=== PATIENT | male | born 1970 | race Hispanic/Latino ===

== ENCOUNTER 2019-08-31 13:27 | Inpatient (IN) | payer BC, OTHER ==
[~2019-08-31] VITALS: Ht 188 cm; Wt 196.5 kg
[~2019-08-31 13:27] MED LIST: BUPR300T54 PO; DOXY100C2 PO; INSU3INS3 SQ; LEVO50TA11 PO; LISI1TAB28 PO; LOVA20TA3 PO; METO100T14 PO; SITA1TAB6 PO
[2019-08-31 14:30] LABS: BASOPHILS % (AUTO) 1.2 % (0.0-5.0); EOSINOPHILS % (AUTO) 3.5 % (0.0-8.0); HEMATOCRIT 40.2 % (42-54); MEAN CORPUSCULAR HEMOGLOBIN 32.2 pg (27.0-33.0); MEAN CORPUSCULAR HGB CONC 34.5 g/dL (32.0-36.0); MEAN CORPUSCULAR VOLUME 93.6 fL (79-99); MONOCYTES % (AUTO) 8.2 % (3.0-13.0); NEUTROPHILS % (AUTO) 60.1 % (40.0-77.0); NUCLEATED RED BLOOD CELLS 0.1 % (0.0-0.19); PLATELET COUNT (AUTO) 130 K/uL (130-400); RED CELL DISTRIBUTION WIDTH 13.1 % (11.0-15.5); WHITE BLOOD COUNT (AUTO) 4.9 K/uL (4.8-10.8)
[2019-08-31 14:43] LABS: CREATININE 1.1 mg/dL (0.5-1.5); POTASSIUM 4.2 mmol/L (3.5-5.1)
[2019-08-31 14:48] LABS: ALBUMIN 2.9 g/dL (3.5-5.0); BILIRUBIN,TOTAL 0.4 mg/dL (0.2-1.0); CRP QUANTITATIVE 11.3 mg/L (0.00-9.0); TOTAL PROTEIN, SERUM 7.4 g/dL (6.0-8.3)
[2019-08-31 15:35] LABS: ERYTHROCYTE SEDIMENTATION RATE 22 MM/HR (0-15)
[2019-08-31] MEDS ORDERED: VANCOMYCIN 1GM+NS 250ML 250 ML IV ONE (15:58)
[2019-08-31] MEDS ORDERED: ZOSYN 3.375GM+NS 50ML 50 ML IV ONE (15:58)
[2019-08-31] MEDS ORDERED: INSULIN HUMULIN R 100 UNIT/ML 3ML ONE (15:59)
[2019-08-31] MEDS ORDERED: RENAL DOSE IV SCH (16:00)
[2019-08-31] MEDS ORDERED: SODIUM CHLORIDE 0.9% 1000ML 1,000 ML IV ONE ×2 (16:00→17:44)
[2019-08-31] MEDS ORDERED: PHARMACY COMMUNICATION MISC SCH (16:00)
[2019-08-31] MEDS: SODIUM CHLORIDE 0.9% 1000ML 1,000 ML IV SCH ×2 (16:02→23:27)
[2019-08-31] MEDS ORDERED: GLUCAGON 1MG KIT 1 MG ML IM PRN (16:15)
[2019-08-31] MEDS ORDERED: DEXTROSE 50%-WATER 50 ML DISP.SYRIN IV PRN (16:15)
[2019-08-31] MEDS ORDERED: VANCOMYCIN PROTOCOL PER PHARMACY IV SCH (17:00)
[2019-08-31] MEDS ORDERED: COMPOUND IV REFRIGERATED 1 EACH IVSOLN MISC PRN (17:15)
[2019-08-31] MEDS: INSULIN HUMULIN R 100 UNIT/ML 3ML SQ SCH (21:00)
[2019-08-31] MEDS: FAMOTIDINE 20MG TAB 20 MG TAB PO SCH (21:00)
[2019-08-31] MEDS: ZOSYN 3.375GM+NS 50ML 50 ML IV SCH (21:00)
[2019-08-31] MEDS: VANCOMYCIN 2 GM in SODIUM CHLORIDE 0.9% 500ML 500 ML IV SCH (21:00)
[2019-08-31] MEDS ORDERED: FAMOTIDINE 20MG TAB 20 MG TAB ONE (21:12)
[2019-08-31 21:50] VITALS: BP 148/84
--- NOTE | 2019-08-31 22:00 | NUR ---
ASSESSMENT NOTE PATIENT AWAKE, ALERT, OX3, NO SOB, NO C/O PAIN AT THIS TIME, RIGHT HAND 20G CATHETER PATENT, NO FAMILY AT BEDSIDE, OPEN LEFT POSTERIOR GREAT TOE ULCER OPEN , NO DRAINAGE AT THIS TIME, TEACH PATIENT PLAN OF CARE AND EXPECTED OUTCOME, PATIENT VERBALIZES UNDERSTANDING VIA TEACH BACK
[2019-08-31] MEDS ORDERED: ACETAMINOPHEN EXTRA STRENGTH 500 MG TABLET PO PRN (22:30)
[2019-08-31] MEDS ORDERED: ONDANSETRON HCL 4 MG/2 ML VIAL IVP PRN (22:30)
[2019-08-31] MEDS ORDERED: MORPHINE SULFATE 2 MG/ML 1ML SYG IVP PRN (22:30)
[2019-08-31] MEDS ORDERED: METF-446 PO (22:33)
[2019-08-31] MEDS ORDERED: ATOR40TA71 PO (22:33)
[2019-08-31] MEDS ORDERED: IBUP-2077 PO (22:33)
[2019-08-31] MEDS ORDERED: FLU VACC QS2019-20 36MOS UP/PF 60 MCG/0.5 ML ML IM ONE (23:15)
[2019-09-01 00:10] VITALS: BP 136/77
[2019-09-01 04:11] VITALS: BP 154/88
[2019-09-01 04:40] LABS: EOSINOPHILS % (AUTO) 3.2 % (0.0-8.0); HEMATOCRIT 41.7 % (42-54); LYMPHOCYTES % (AUTO) 32.7 % (21.0-51.0); MEAN CORPUSCULAR HEMOGLOBIN 32.3 pg (27.0-33.0); MEAN CORPUSCULAR HGB CONC 34.7 g/dL (32.0-36.0); MEAN CORPUSCULAR VOLUME 93.1 fL (79-99); MONOCYTES % (AUTO) 7.7 % (3.0-13.0); NEUTROPHILS % (AUTO) 55.4 % (40.0-77.0); PLATELET COUNT (AUTO) 145 K/uL (130-400); RED BLOOD CELL COUNT(AUTO) 4.47 MIL/uL (4.50-6.20); RED CELL DISTRIBUTION WIDTH 13.4 % (11.0-15.5)
[2019-09-01 04:47] LABS: CREATININE 1.1 mg/dL (0.5-1.5); POTASSIUM 4.1 mmol/L (3.5-5.1)
[2019-09-01] MEDS: ZOSYN 3.375GM+NS 50ML 50 ML IV SCH ×3 (05:29→19:37)
[2019-09-01] MEDS: INSULIN HUMULIN R 100 UNIT/ML 3ML SQ SCH ×4 (06:28→20:53)
[2019-09-01 08:00] VITALS: BP 137/86
[2019-09-01] MEDS: ENOXAPARIN SODIUM 30 MG/0.3 ML SQ SCH (09:00)
[2019-09-01] MEDS: FAMOTIDINE 20MG TAB 20 MG TAB PO SCH ×2 (09:34→19:37)
[2019-09-01] MEDS: VANCOMYCIN 2 GM in SODIUM CHLORIDE 0.9% 500ML 500 ML IV SCH ×2 (09:34→19:37)
[2019-09-01 12:00] VITALS: BP 162/96
[2019-09-01] MEDS: SODIUM CHLORIDE 0.9% 1000ML 1,000 ML IV SCH ×2 (12:02→21:47)
--- NOTE | 2019-09-01 12:26 | NUR ---
DR MAURICIO VISITED WITH PATIENT. SCRAPING OF THE SKIN DONE AT BEDSIDE. PATIENT TOLERATED WELL, NO COMPLAIN OF PAIN. BETADINE CAST APPLIED, ORDERED TO BE CHANGED Q24 HRS
--- NOTE | 2019-09-01 14:17 | NUR ---
RD NOTIFICATION Pt admitted for Diabetic Ulcer, L. Foot Osteomyelitis. Pt pending Debridement as per EMR. Upon visit, Pt reports good appetite, however did not consume breakfast d/t "earlier interruptions" and did not desire food afterwards. Pt did not otherwise request additional foods but was looking forward to lunch time. Recommend to continue 75gm CCD, Recommend to offer Diabetic Snacks in between meal times. RD recommends Harinder BID for wound healing support. Also recommend Vitamin C and ZnSO4 daily for wound healing support. Pt LBM 08/31/19. Pt monitored labs: Glu 182, Alk 40, CRP 11.30, Alb 2.9. RD to continue to monitor. Please notify RD as additional nutrition concerns arise. Thank you. Addendum: 09/01/19 at [address] RD Amended: Links added.
--- NOTE | 2019-09-01 14:37 | NUR ---
DCP CM met with pt discussed dc plans. Pt is independent prior to admission, lives at home w/mother. Pt has own crutches and cpap. Denies any other equipment/services. Feels safe to go back home, still drives and works, arranges own needs, family able to assist with transportation as necessary. DC plan to home once stable. CM to cont to follow up. Addendum: 09/01/19 at 1438 by RALPH MACHADO LVN CM Amended: Links added.
[2019-09-01] MEDS ORDERED: IOHEXOL 350 MG/ML 100ML INFUS..BTL IV ONE (15:27)
[2019-09-01 16:00] VITALS: BP 132/81
[2019-09-01 20:10] VITALS: BP 135/75
[2019-09-02 01:14] VITALS: BP 151/86
[2019-09-02] MEDS: ZOSYN 3.375GM+NS 50ML 50 ML IV SCH ×3 (04:16→20:18)
[2019-09-02 04:43] VITALS: BP 146/87
[2019-09-02] MEDS: INSULIN HUMULIN R 100 UNIT/ML 3ML SQ SCH ×4 (05:52→20:23)
[2019-09-02 07:30] VITALS: BP 152/98
[2019-09-02] MEDS: FAMOTIDINE 20MG TAB 20 MG TAB PO SCH ×2 (10:09→20:18)
[2019-09-02] MEDS: VANCOMYCIN 2 GM in SODIUM CHLORIDE 0.9% 500ML 500 ML IV SCH ×2 (10:09→22:06)
[2019-09-02] MEDS: SODIUM CHLORIDE 0.9% 1000ML 1,000 ML IV SCH ×2 (10:10→16:54)
[2019-09-02] MEDS: ENOXAPARIN SODIUM 30 MG/0.3 ML SQ SCH (10:10)
[2019-09-02 11:00] VITALS: BP 164/101
[2019-09-02 16:00] VITALS: BP 160/109
[2019-09-02] MEDS ORDERED: IBUPROFEN 800 MG TAB PO PRN (18:15)
[2019-09-02 20:00] VITALS: BP 145/90
[2019-09-03 00:41] VITALS: BP 152/91
[2019-09-03] MEDS: ZOSYN 3.375GM+NS 50ML 50 ML IV SCH ×3 (03:27→22:12)
[2019-09-03] MEDS: VANCOMYCIN 2 GM in SODIUM CHLORIDE 0.9% 500ML 500 ML IV SCH ×2 (03:28→10:49)
[2019-09-03] MEDS: SODIUM CHLORIDE 0.9% 1000ML 1,000 ML IV SCH ×2 (03:28→14:02)
[2019-09-03 04:00] VITALS: BP 146/70
[2019-09-03] MEDS ORDERED: LEVOTHYROXINE 50 MCG TABLET ONE (05:16)
[2019-09-03] MEDS: LEVOTHYROXINE 50 MCG TABLET PO SCH (05:34)
[2019-09-03] MEDS: INSULIN HUMULIN R 100 UNIT/ML 3ML SQ SCH ×4 (05:38→22:17)
[2019-09-03 08:00] VITALS: BP 129/77
[2019-09-03] MEDS: HOME MEDICATION 1 EACH PO SCH (09:00)
[2019-09-03] MEDS: INSULIN GLARGINE 100 UNITS/ML 10 ML VIAL SQ SCH (09:00)
[2019-09-03] MEDS ORDERED: INSULIN GLARGINE 100 UNITS/ML 10 ML VIAL SQ SCH (09:00)
[2019-09-03] MEDS: FAMOTIDINE 20MG TAB 20 MG TAB PO SCH ×2 (09:31→22:12)
[2019-09-03] MEDS: METFORMIN HCL 500 MG TABLET PO SCH (09:31)
[2019-09-03] MEDS: BUPROPION HCL 150 MG TABLET.SA PO SCH (09:31)
[2019-09-03] MEDS: LISINOPRIL 20 MG TABLET PO SCH (09:32)
[2019-09-03] MEDS: HYDROCHLOROTHIAZIDE 25 MG TABLET PO SCH (09:33)
[2019-09-03] MEDS: ATORVASTATIN CALCIUM 40 MG TABLET PO SCH (09:33)
[2019-09-03] MEDS: ENOXAPARIN SODIUM 30 MG/0.3 ML SQ SCH (09:34)
[2019-09-03] MEDS: METOPROLOL TARTRATE 50 MG TAB PO SCH (09:34)
[2019-09-03 12:00] VITALS: BP 136/84
[2019-09-03 16:00] VITALS: BP 151/82
[2019-09-03 20:00] VITALS: BP 153/87
[2019-09-03] MEDS: VANCOMYCIN 1GM+NS 250ML 250 ML IV SCH (22:13)
[2019-09-04] VITALS (7 sets, daily range): BP systolic 135–162; BP diastolic 81–103
[2019-09-04] MEDS: SODIUM CHLORIDE 0.9% 1000ML 1,000 ML IV SCH (00:02)
[2019-09-04] MEDS: VANCOMYCIN 1GM+NS 250ML 250 ML IV SCH ×3 (04:57→20:37)
[2019-09-04] MEDS: LEVOTHYROXINE 50 MCG TABLET PO SCH (06:13)
[2019-09-04] MEDS: ZOSYN 3.375GM+NS 50ML 50 ML IV SCH ×3 (06:13→20:37)
[2019-09-04] MEDS: INSULIN HUMULIN R 100 UNIT/ML 3ML SQ SCH ×4 (06:18→20:35)
[2019-09-04] MEDS: BUPROPION HCL 150 MG TABLET.SA PO SCH (08:50)
[2019-09-04] MEDS: ATORVASTATIN CALCIUM 40 MG TABLET PO SCH (08:50)
[2019-09-04] MEDS: METFORMIN HCL 500 MG TABLET PO SCH (08:50)
[2019-09-04] MEDS: INSULIN GLARGINE 100 UNITS/ML 10 ML VIAL SQ SCH (08:50)
[2019-09-04] MEDS: FAMOTIDINE 20MG TAB 20 MG TAB PO SCH ×2 (08:51→20:36)
[2019-09-04] MEDS: METOPROLOL TARTRATE 50 MG TAB PO SCH (08:51)
[2019-09-04] MEDS: HYDROCHLOROTHIAZIDE 25 MG TABLET PO SCH (08:52)
[2019-09-04] MEDS: HOME MEDICATION 1 EACH PO SCH (08:52)
[2019-09-04] MEDS: LISINOPRIL 20 MG TABLET PO SCH (08:53)
[2019-09-04] MEDS: ENOXAPARIN SODIUM 30 MG/0.3 ML SQ SCH (08:53)
[2019-09-04 10:24] LABS: BASOPHILS % (AUTO) 1.1 % (0.0-5.0); EOSINOPHILS % (AUTO) 3.5 % (0.0-8.0); LYMPHOCYTES % (AUTO) 34.5 % (21.0-51.0); MEAN CORPUSCULAR HEMOGLOBIN 32.1 pg (27.0-33.0); MEAN CORPUSCULAR HGB CONC 34.1 g/dL (32.0-36.0); MEAN CORPUSCULAR VOLUME 94.1 fL (79-99); MONOCYTES % (AUTO) 8.5 % (3.0-13.0); NEUTROPHILS % (AUTO) 52.4 % (40.0-77.0); PLATELET COUNT (AUTO) 133 K/uL (130-400); RED BLOOD CELL COUNT(AUTO) 4.25 MIL/uL (4.50-6.20); RED CELL DISTRIBUTION WIDTH 13.3 % (11.0-15.5); WHITE BLOOD COUNT (AUTO) 4.6 K/uL (4.8-10.8)
[2019-09-04 10:33] LABS: CREATININE 1.4 mg/dL (0.5-1.5); POTASSIUM 3.6 mmol/L (3.5-5.1)
[2019-09-04 10:37] LABS: CRP QUANTITATIVE 18.2 mg/L (0.00-9.0); MAGNESIUM 1.7 mg/dL (1.80-2.40); PHOSPHORUS 3.9 mg/dL (2.5-4.9)
[2019-09-04 11:07] LABS: HEMOGLOBIN A1C 10.8 % (4.0-6.0)
[2019-09-04 12:49] LABS: ERYTHROCYTE SEDIMENTATION RATE 31 MM/HR (0-15)
[2019-09-05 03:00] VITALS: BP 142/86
[2019-09-05 05:18] LABS: BASOPHILS % (AUTO) 1.1 % (0.0-5.0); EOSINOPHILS % (AUTO) 3.3 % (0.0-8.0); HEMATOCRIT 38.5 % (42-54); LYMPHOCYTES % (AUTO) 29.5 % (21.0-51.0); MEAN CORPUSCULAR HEMOGLOBIN 32.6 pg (27.0-33.0); MEAN CORPUSCULAR HGB CONC 34.8 g/dL (32.0-36.0); MEAN CORPUSCULAR VOLUME 93.5 fL (79-99); MONOCYTES % (AUTO) 10.5 % (3.0-13.0); NEUTROPHILS % (AUTO) 55.6 % (40.0-77.0); NUCLEATED RED BLOOD CELLS 0.1 % (0.0-0.19); PLATELET COUNT (AUTO) 142 K/uL (130-400); RED BLOOD CELL COUNT(AUTO) 4.11 MIL/uL (4.50-6.20); RED CELL DISTRIBUTION WIDTH 13.4 % (11.0-15.5); WHITE BLOOD COUNT (AUTO) 5.7 K/uL (4.8-10.8)
[2019-09-05] MEDS: ZOSYN 3.375GM+NS 50ML 50 ML IV SCH ×3 (05:26→21:32)
[2019-09-05] MEDS: INSULIN HUMULIN R 100 UNIT/ML 3ML SQ SCH ×4 (05:29→21:26)
[2019-09-05] MEDS: LEVOTHYROXINE 50 MCG TABLET PO SCH (05:29)
[2019-09-05 05:30] LABS: CREATININE 1.3 mg/dL (0.5-1.5)
[2019-09-05 08:00] VITALS: BP 163/100
[2019-09-05] MEDS: HOME MEDICATION 1 EACH PO SCH (09:00)
[2019-09-05] MEDS: INSULIN GLARGINE 100 UNITS/ML 10 ML VIAL SQ SCH (09:54)
[2019-09-05] MEDS: BUPROPION HCL 150 MG TABLET.SA PO SCH (09:59)
[2019-09-05] MEDS: METOPROLOL TARTRATE 50 MG TAB PO SCH (09:59)
[2019-09-05] MEDS: FAMOTIDINE 20MG TAB 20 MG TAB PO SCH ×2 (09:59→21:32)
[2019-09-05] MEDS: ATORVASTATIN CALCIUM 40 MG TABLET PO SCH (10:00)
[2019-09-05] MEDS: METFORMIN HCL 500 MG TABLET PO SCH (10:00)
[2019-09-05] MEDS: HYDROCHLOROTHIAZIDE 25 MG TABLET PO SCH (10:00)
[2019-09-05] MEDS: VANCOMYCIN 1GM+NS 250ML 250 ML IV SCH ×3 (10:01→21:32)
[2019-09-05] MEDS: LISINOPRIL 20 MG TABLET PO SCH (10:01)
[2019-09-05] MEDS: ENOXAPARIN SODIUM 30 MG/0.3 ML SQ SCH (10:02)
[2019-09-05 12:00] VITALS: BP 122/76
[2019-09-05 16:00] VITALS: BP 141/66
[2019-09-05 19:49] VITALS: BP 157/91
--- NOTE | 2019-09-05 22:32 | NUR ---
METAL DEALER CALLED TO REPORT HR OF 23 WITH 2ND DEGREE TYPE 2 AV BLOCK. PATIENT CURRENTLY JERSON 55. ASSESSED THE PT. ASYMPTOMATIC AT THIS TIME. PT REQUESTING FOOD, NO OTHER SYMPTOMS. WILL PAGE DIRECTOR [employer] TO REPORT FINDINGS. TELE MONITOR REMAINS ON, BED ALARM ON.
--- NOTE | 2019-09-05 22:42 | NUR ---
PHYSICIAN RETURNED CHINO FOOTE ORDERED AN EKG TO BE DONE AND CONTINUE TO CLOSELY MONITOR THE PATIENT.
--- NOTE | 2019-09-05 23:27 | NUR ---
EKG RESULTS PAGED CHINO IRVIN TO REPORT EKG OF SINUS JERSON WITH FIRST DEGREE AV BLOCK. RIGHT BUNDLE BRANCH BLOCK. BP 140/85. PT ASYMPTOMATIC. PER RORY TO CONTINUE TO MONITOR THE PATIENT THROUGHOUT THE SHIFT. TELE REMAINS ON PT.
[2019-09-06] VITALS: BP 140/85
[2019-09-06 03:22] VITALS: BP 141/79
[2019-09-06] MEDS: ZOSYN 3.375GM+NS 50ML 50 ML IV SCH ×2 (04:58→12:25)
[2019-09-06] MEDS: VANCOMYCIN 1GM+NS 250ML 250 ML IV SCH (04:59)
[2019-09-06] MEDS: INSULIN HUMULIN R 100 UNIT/ML 3ML SQ SCH ×3 (05:31→17:54)
[2019-09-06] MEDS: LEVOTHYROXINE 50 MCG TABLET PO SCH (06:38)
[2019-09-06 07:38] VITALS: BP 140/82
--- NOTE | 2019-09-06 08:28 | NUR ---
Per PHIL Medeiros, discharge order received, pending discharge for Dr. Zaragoza's antibiotic recommendations for home.
[2019-09-06] MEDS: HOME MEDICATION 1 EACH PO SCH (09:00)
[2019-09-06] MEDS: BUPROPION HCL 150 MG TABLET.SA PO SCH (10:42)
[2019-09-06] MEDS: METOPROLOL TARTRATE 50 MG TAB PO SCH (10:42)
[2019-09-06] MEDS: ENOXAPARIN SODIUM 30 MG/0.3 ML SQ SCH (10:43)
[2019-09-06] MEDS: LISINOPRIL 20 MG TABLET PO SCH (10:44)
[2019-09-06] MEDS: HYDROCHLOROTHIAZIDE 25 MG TABLET PO SCH (10:44)
[2019-09-06] MEDS: ATORVASTATIN CALCIUM 40 MG TABLET PO SCH (10:45)
[2019-09-06] MEDS: METFORMIN HCL 500 MG TABLET PO SCH (10:45)
[2019-09-06] MEDS: FAMOTIDINE 20MG TAB 20 MG TAB PO SCH (10:45)
[2019-09-06] MEDS: INSULIN GLARGINE 100 UNITS/ML 10 ML VIAL SQ SCH (10:46)
[2019-09-06 12:00] VITALS: BP 144/89
[2019-09-06 16:00] VITALS: BP 153/93
--- NOTE | 2019-09-06 18:30 | NUR ---
Discharge picture of wound taken. Patient stated asked how to dress wound, gave verbal instructions for dressing wound with betadine cast, 4x4 and kerlix. 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 Explained to patient he needed to call Dr. Hernandez first thing in the morning to get activity recommendations and clearance on when to return to work. Patient verbalized understanding. Provided follow up information.
== END 2019-09-06 19:25 | disposition home or self-care (01) | DRG 622 ==
LOC: EDH 13:27 → EDHIP 15:48 → 3AH 20:46
PROVIDERS: ADMIT Hospitalist; ATTEND Hospitalist
PROC: 0JBR0ZZ Excision of Left Foot Subcutaneous Tissue and Fascia, Open Approach (ICD-10-PCS; principal; 2019-09-01)
DX: E11.621 Type 2 diabetes mellitus with foot ulcer (principal); A41.9 Sepsis, unspecified organism; L02.612 Cutaneous abscess of left foot; Z68.43 Body mass index [BMI] 50.0-59.9, adult; E44.1 Mild protein-calorie malnutrition; L03.116 Cellulitis of left lower limb; N39.0 Urinary tract infection, site not specified; K57.92 Diverticulitis of intestine, part unspecified, without perforation or abscess without bleeding; L97.529 Non-pressure chronic ulcer of other part of left foot with unspecified severity; E11.42 Type 2 diabetes mellitus with diabetic polyneuropathy; E11.65 Type 2 diabetes mellitus with hyperglycemia; E66.01 Morbid (severe) obesity due to excess calories; E78.5 Hyperlipidemia, unspecified; E03.9 Hypothyroidism, unspecified; B96.89 Other specified bacterial agents as the cause of diseases classified elsewhere; I10 Essential (primary) hypertension; Z82.49 Family history of ischemic heart disease and other diseases of the circulatory system; Z82.0 Family history of epilepsy and other diseases of the nervous system; Z82.5 Family history of asthma and other chronic lower respiratory diseases; Z83.3 Family history of diabetes mellitus; Z82.3 Family history of stroke; Z88.2 Allergy status to sulfonamides; G47.33 Obstructive sleep apnea (adult) (pediatric); Z95.0 Presence of cardiac pacemaker; Z80.1 Family history of malignant neoplasm of trachea, bronchus and lung; Z91.19 Patient's noncompliance with other medical treatment and regimen; F41.9 Anxiety disorder, unspecified
CPT/HCPCS: 36415; 73630; 73701; 78315; 80048; 80053; 80202; 82948; 83036; 83735; 84100; 84145; 85025; 85651; 86140; 87040; 87070; 87076; 87077; 87186; 93005; 93926; A9503; G0008; G0378; J1650; J1815; J2543; J3370; J7030; J7040; Q9967

== ENCOUNTER → 2019-09-15 | Outpatient (CLI) | payer BC ==
[~2019-09-15] MED LIST changes: +ATOR40TA71 PO; -DOXY100C2 PO; +IBUP-2077 PO; -LOVA20TA3 PO; +METF-446 PO
[2019-09-15 14:38] VITALS: BP 164/99
== END | disposition home or self-care (01) ==
LOC: WHH 09:00
PROVIDERS: ATTEND Podiatrist Foot & Ankle Surgery
DX: E11.621 Type 2 diabetes mellitus with foot ulcer (principal); L97.522 Non-pressure chronic ulcer of other part of left foot with fat layer exposed; E11.42 Type 2 diabetes mellitus with diabetic polyneuropathy; E11.51 Type 2 diabetes mellitus with diabetic peripheral angiopathy without gangrene; E66.01 Morbid (severe) obesity due to excess calories; E78.5 Hyperlipidemia, unspecified; E03.9 Hypothyroidism, unspecified; F41.9 Anxiety disorder, unspecified; E46 Unspecified protein-calorie malnutrition; I10 Essential (primary) hypertension; G47.33 Obstructive sleep apnea (adult) (pediatric); Z88.2 Allergy status to sulfonamides
CPT/HCPCS: 11042; A4450; A6207; L3260

== ENCOUNTER 2021-08-16 18:35 | Emergency (ER) | payer BC, OTHER ==
[~2021-08-16] VITALS: Ht 188 cm; Wt 193.7 kg
[~2021-08-16 18:35] MED LIST changes: +BUPR-317 PO; -BUPR300T54 PO; -LISI1TAB28 PO; +LISI1TAB51 PO
[2021-08-16] MEDS ORDERED: CLINDAMYCIN IVPB 900MG/50ML 50 ML IV ONE (21:00)
[2021-08-16] MEDS ORDERED: TETANUS/DIPHTHERIA TOXOID [ADULT] 0.5 ML VIAL IM ONE (21:00)
[2021-08-16 21:11] LABS: BASOPHILS % (AUTO) 0.4 % (0.0-5.0); EOSINOPHILS % (AUTO) 1.4 % (0.0-8.0); HEMATOCRIT 40.6 % (42-54); LYMPHOCYTES % (AUTO) 20.1 % (21.0-51.0); MEAN CORPUSCULAR HGB CONC 34.2 g/dL (32.0-36.0); MEAN CORPUSCULAR VOLUME 90.4 fL (79-99); MONOCYTES % (AUTO) 9.2 % (3.0-13.0); NEUTROPHILS % (AUTO) 68.5 % (40.0-77.0); PLATELET COUNT (AUTO) 125 K/uL (130-400); RED BLOOD CELL COUNT(AUTO) 4.49 MIL/uL (4.50-6.20); RED CELL DISTRIBUTION WIDTH 13.1 % (11.0-15.5); WHITE BLOOD COUNT (AUTO) 7.4 K/uL (4.8-10.8)
[2021-08-16 21:19] LABS: CREATININE 1.4 mg/dL (0.5-1.5); POTASSIUM 4.1 mmol/L (3.5-5.1)
[2021-08-16 21:23] LABS: ALBUMIN 2.5 g/dL (3.5-5.0); BILIRUBIN,TOTAL 0.4 mg/dL (0.2-1.0); TOTAL PROTEIN, SERUM 7.7 g/dL (6.0-8.3)
[2021-08-16] MEDS ORDERED: CLIN300C10 PO (21:51)
[2021-08-16 22:12] VITALS: BP 154/97
== END 2021-08-16 22:21 | disposition home or self-care (01) ==
LOC: EDH 18:35
DX: E11.621 Type 2 diabetes mellitus with foot ulcer (principal); E11.65 Type 2 diabetes mellitus with hyperglycemia; L97.529 Non-pressure chronic ulcer of other part of left foot with unspecified severity; L03.116 Cellulitis of left lower limb; I10 Essential (primary) hypertension; Z79.1 Long term (current) use of non-steroidal anti-inflammatories (NSAID); Z79.4 Long term (current) use of insulin; Z79.899 Other long term (current) drug therapy; Z88.1 Allergy status to other antibiotic agents; Z88.2 Allergy status to sulfonamides
CPT/HCPCS: 36415; 73660; 80053; 85025; 90471; 90714; 96365; 99284; J3490

== ENCOUNTER → 2022-03-11 | Outpatient (CLI) | payer OTHER ==
[~2022-03-11] MED LIST changes: +CLIN-141 PO
== END ==
LOC: RAH 15:04
PROVIDERS: ATTEND Family Medicine
DX: Z02.71 Encounter for disability determination (principal); M79.672 Pain in left foot
CPT/HCPCS: 73620

== ENCOUNTER → 2022-12-10 | Outpatient (CLI) | payer MEDICAID | END | disposition home or self-care (01) | LOC: WHH 08:07 | PROVIDERS: ATTEND Family Medicine | DX: E11.621 Type 2 diabetes mellitus with foot ulcer (principal); L97.412 Non-pressure chronic ulcer of right heel and midfoot with fat layer exposed; L97.311 Non-pressure chronic ulcer of right ankle limited to breakdown of skin; I89.0 Lymphedema, not elsewhere classified; E11.65 Type 2 diabetes mellitus with hyperglycemia; E78.2 Mixed hyperlipidemia; E03.9 Hypothyroidism, unspecified; E66.9 Obesity, unspecified; Z68.43 Body mass index [BMI] 50.0-59.9, adult; Z79.899 Other long term (current) drug therapy | CPT/HCPCS: 11042; 11045; A6456 ==

== ENCOUNTER → 2022-12-17 | Outpatient (CLI) | payer MEDICAID ==
[~2022-12-17] MED LIST changes: +LIDOCAINE HCL 4% LTA SOL 4 ML VIAL TP ONE
== END | disposition home or self-care (01) ==
LOC: WHH 08:13
PROVIDERS: ATTEND Family Medicine
DX: E11.621 Type 2 diabetes mellitus with foot ulcer (principal); L97.412 Non-pressure chronic ulcer of right heel and midfoot with fat layer exposed; L97.311 Non-pressure chronic ulcer of right ankle limited to breakdown of skin; L03.115 Cellulitis of right lower limb; I89.0 Lymphedema, not elsewhere classified; E11.65 Type 2 diabetes mellitus with hyperglycemia; I10 Essential (primary) hypertension; E78.2 Mixed hyperlipidemia; E03.9 Hypothyroidism, unspecified; E66.9 Obesity, unspecified; Z68.43 Body mass index [BMI] 50.0-59.9, adult; Z79.899 Other long term (current) drug therapy
CPT/HCPCS: 99214; A4450

== ENCOUNTER → 2022-12-24 | Outpatient (CLI) | payer MEDICAID | END | disposition home or self-care (01) | LOC: WHH 08:59 | PROVIDERS: ATTEND Family Medicine | DX: E11.621 Type 2 diabetes mellitus with foot ulcer (principal); L97.412 Non-pressure chronic ulcer of right heel and midfoot with fat layer exposed; L97.311 Non-pressure chronic ulcer of right ankle limited to breakdown of skin; L03.115 Cellulitis of right lower limb; I89.0 Lymphedema, not elsewhere classified; E11.65 Type 2 diabetes mellitus with hyperglycemia; I10 Essential (primary) hypertension; E78.2 Mixed hyperlipidemia; E03.9 Hypothyroidism, unspecified; E66.9 Obesity, unspecified; Z68.43 Body mass index [BMI] 50.0-59.9, adult; Z79.899 Other long term (current) drug therapy | CPT/HCPCS: 29580; A6456 ==

== ENCOUNTER → 2023-01-01 | Outpatient (CLI) | payer MEDICAID ==
[~2023-01-01] MED LIST changes: -LIDOCAINE HCL 4% LTA SOL 4 ML VIAL TP ONE
== END | disposition home or self-care (01) ==
LOC: RAH 13:22
PROVIDERS: ATTEND Nurse Practitioner Family
DX: I70.203 Unspecified atherosclerosis of native arteries of extremities, bilateral legs (principal); L97.412 Non-pressure chronic ulcer of right heel and midfoot with fat layer exposed
CPT/HCPCS: 93925; 93970

== ENCOUNTER → 2023-01-02 | Outpatient (CLI) | payer MEDICAID | END | disposition home or self-care (01) | LOC: WHH 08:53 | PROVIDERS: ATTEND Family Medicine | DX: E11.621 Type 2 diabetes mellitus with foot ulcer (principal); L97.412 Non-pressure chronic ulcer of right heel and midfoot with fat layer exposed; L97.311 Non-pressure chronic ulcer of right ankle limited to breakdown of skin; E11.65 Type 2 diabetes mellitus with hyperglycemia; L03.115 Cellulitis of right lower limb; I89.0 Lymphedema, not elsewhere classified; I10 Essential (primary) hypertension; E78.2 Mixed hyperlipidemia; E03.9 Hypothyroidism, unspecified; E66.9 Obesity, unspecified; Z68.43 Body mass index [BMI] 50.0-59.9, adult; Z79.899 Other long term (current) drug therapy; Z86.718 Personal history of other venous thrombosis and embolism | CPT/HCPCS: 29580; A6456 ==

== ENCOUNTER → 2023-01-08 | Outpatient (CLI) | payer MEDICAID | END | disposition home or self-care (01) | LOC: WHH 08:30 | PROVIDERS: ATTEND Family Medicine | DX: E11.621 Type 2 diabetes mellitus with foot ulcer (principal); L97.412 Non-pressure chronic ulcer of right heel and midfoot with fat layer exposed; L97.311 Non-pressure chronic ulcer of right ankle limited to breakdown of skin; E11.65 Type 2 diabetes mellitus with hyperglycemia; L03.115 Cellulitis of right lower limb; I89.0 Lymphedema, not elsewhere classified; I10 Essential (primary) hypertension; E78.2 Mixed hyperlipidemia; E03.9 Hypothyroidism, unspecified; E66.9 Obesity, unspecified; Z68.43 Body mass index [BMI] 50.0-59.9, adult; Z79.899 Other long term (current) drug therapy; Z86.718 Personal history of other venous thrombosis and embolism | CPT/HCPCS: 29580; A6456 ==

== ENCOUNTER → 2023-01-20 | Outpatient (CLI) | payer MEDICAID | END | disposition home or self-care (01) | LOC: WHH 13:33 | PROVIDERS: ATTEND Family Medicine | DX: E11.621 Type 2 diabetes mellitus with foot ulcer (principal); L97.412 Non-pressure chronic ulcer of right heel and midfoot with fat layer exposed; L97.311 Non-pressure chronic ulcer of right ankle limited to breakdown of skin; E11.65 Type 2 diabetes mellitus with hyperglycemia; L03.115 Cellulitis of right lower limb; I89.0 Lymphedema, not elsewhere classified; I10 Essential (primary) hypertension; E78.2 Mixed hyperlipidemia; E03.9 Hypothyroidism, unspecified; E66.9 Obesity, unspecified; Z68.43 Body mass index [BMI] 50.0-59.9, adult; Z79.899 Other long term (current) drug therapy; Z86.718 Personal history of other venous thrombosis and embolism | CPT/HCPCS: 29580; A6197; A4450; A6456 ==

== ENCOUNTER → 2023-01-27 | Outpatient (CLI) | payer MEDICAID | END | disposition home or self-care (01) | LOC: WHH 13:36 | PROVIDERS: ATTEND Family Medicine | DX: E11.621 Type 2 diabetes mellitus with foot ulcer (principal); L97.412 Non-pressure chronic ulcer of right heel and midfoot with fat layer exposed; L97.311 Non-pressure chronic ulcer of right ankle limited to breakdown of skin; E11.65 Type 2 diabetes mellitus with hyperglycemia; L03.115 Cellulitis of right lower limb; I89.0 Lymphedema, not elsewhere classified; I10 Essential (primary) hypertension; E78.2 Mixed hyperlipidemia; E03.9 Hypothyroidism, unspecified; E66.9 Obesity, unspecified; Z68.43 Body mass index [BMI] 50.0-59.9, adult; Z79.899 Other long term (current) drug therapy; Z86.718 Personal history of other venous thrombosis and embolism | CPT/HCPCS: 29580; 82948 ×3; A6456 ==

== ENCOUNTER → 2023-03-04 | Outpatient (CLI) | payer MEDICAID ==
[~2023-03-04] MED LIST changes: +LIDOCAINE HCL 4% LTA SOL 4 ML VIAL TP ONE
== END | disposition home or self-care (01) ==
LOC: WHH 11:04
PROVIDERS: ATTEND Nurse Practitioner Family
DX: E11.621 Type 2 diabetes mellitus with foot ulcer (principal); L97.412 Non-pressure chronic ulcer of right heel and midfoot with fat layer exposed; L97.311 Non-pressure chronic ulcer of right ankle limited to breakdown of skin; S81.801A Unspecified open wound, right lower leg, initial encounter; L03.115 Cellulitis of right lower limb; E11.65 Type 2 diabetes mellitus with hyperglycemia; I89.0 Lymphedema, not elsewhere classified; I10 Essential (primary) hypertension; E78.2 Mixed hyperlipidemia; E03.9 Hypothyroidism, unspecified; E66.9 Obesity, unspecified; Z68.43 Body mass index [BMI] 50.0-59.9, adult; Z79.899 Other long term (current) drug therapy; Z86.718 Personal history of other venous thrombosis and embolism; W22.8XXA Striking against or struck by other objects, initial encounter; Y93.89 Activity, other specified; Y92.89 Other specified places as the place of occurrence of the external cause; Y99.8 Other external cause status
CPT/HCPCS: 29580; A6209; A6456; A6234

== ENCOUNTER → 2023-03-06 | Outpatient (CLI) | payer MEDICAID ==
[~2023-03-06] MED LIST changes: -LIDOCAINE HCL 4% LTA SOL 4 ML VIAL TP ONE
== END | disposition home or self-care (01) ==
LOC: WHH 09:26
PROVIDERS: ATTEND Nurse Practitioner Family
DX: E11.621 Type 2 diabetes mellitus with foot ulcer (principal); L97.412 Non-pressure chronic ulcer of right heel and midfoot with fat layer exposed; L97.311 Non-pressure chronic ulcer of right ankle limited to breakdown of skin; S81.801D Unspecified open wound, right lower leg, subsequent encounter; E11.65 Type 2 diabetes mellitus with hyperglycemia; L03.115 Cellulitis of right lower limb; I89.0 Lymphedema, not elsewhere classified; I10 Essential (primary) hypertension; E78.2 Mixed hyperlipidemia; E03.9 Hypothyroidism, unspecified; E66.9 Obesity, unspecified; Z68.43 Body mass index [BMI] 50.0-59.9, adult; Z79.899 Other long term (current) drug therapy; Z86.718 Personal history of other venous thrombosis and embolism; W22.8XXD Striking against or struck by other objects, subsequent encounter
CPT/HCPCS: 29580; A6209; A6456

== ENCOUNTER → 2023-03-10 | Outpatient (CLI) | payer MEDICAID | LOC: WHH 11:09 | PROVIDERS: ATTEND Nurse Practitioner Family | DX: E11.621 Type 2 diabetes mellitus with foot ulcer (principal); L97.412 Non-pressure chronic ulcer of right heel and midfoot with fat layer exposed; L97.311 Non-pressure chronic ulcer of right ankle limited to breakdown of skin; S81.801D Unspecified open wound, right lower leg, subsequent encounter; L03.115 Cellulitis of right lower limb; E11.65 Type 2 diabetes mellitus with hyperglycemia; I89.0 Lymphedema, not elsewhere classified; I10 Essential (primary) hypertension; E78.2 Mixed hyperlipidemia; E03.9 Hypothyroidism, unspecified; E66.9 Obesity, unspecified; Z68.43 Body mass index [BMI] 50.0-59.9, adult; Z79.899 Other long term (current) drug therapy; Z86.718 Personal history of other venous thrombosis and embolism; W22.8XXD Striking against or struck by other objects, subsequent encounter | CPT/HCPCS: 29580; A6209; A6456; A6234 ==

== ENCOUNTER → 2023-03-13 | Outpatient (CLI) | payer MEDICAID | END | disposition home or self-care (01) | LOC: WHH 11:16 | PROVIDERS: ATTEND Nurse Practitioner Family | DX: E11.621 Type 2 diabetes mellitus with foot ulcer (principal); L97.412 Non-pressure chronic ulcer of right heel and midfoot with fat layer exposed; E11.622 Type 2 diabetes mellitus with other skin ulcer; L97.311 Non-pressure chronic ulcer of right ankle limited to breakdown of skin; S81.801D Unspecified open wound, right lower leg, subsequent encounter; L03.115 Cellulitis of right lower limb; E11.65 Type 2 diabetes mellitus with hyperglycemia; I89.0 Lymphedema, not elsewhere classified; I10 Essential (primary) hypertension; E78.2 Mixed hyperlipidemia; E03.9 Hypothyroidism, unspecified; E66.9 Obesity, unspecified; Z68.43 Body mass index [BMI] 50.0-59.9, adult; Z79.899 Other long term (current) drug therapy; Z86.718 Personal history of other venous thrombosis and embolism; W22.8XXD Striking against or struck by other objects, subsequent encounter | CPT/HCPCS: 29580; A4450; A6456; A6234 ==

== ENCOUNTER → 2023-03-18 | Outpatient (CLI) | payer MEDICAID | END | disposition home or self-care (01) | LOC: WHH 09:01 | PROVIDERS: ATTEND Nurse Practitioner Family | DX: E11.621 Type 2 diabetes mellitus with foot ulcer (principal); L97.412 Non-pressure chronic ulcer of right heel and midfoot with fat layer exposed; L97.311 Non-pressure chronic ulcer of right ankle limited to breakdown of skin; S81.801D Unspecified open wound, right lower leg, subsequent encounter; L03.115 Cellulitis of right lower limb; E11.65 Type 2 diabetes mellitus with hyperglycemia; I89.0 Lymphedema, not elsewhere classified; I10 Essential (primary) hypertension; E78.2 Mixed hyperlipidemia; E03.9 Hypothyroidism, unspecified; E66.9 Obesity, unspecified; Z68.43 Body mass index [BMI] 50.0-59.9, adult; Z79.899 Other long term (current) drug therapy; Z86.718 Personal history of other venous thrombosis and embolism; W22.8XXD Striking against or struck by other objects, subsequent encounter | CPT/HCPCS: 11042; 87070; 87077 ×2; 87186 ×2; A6456 ==

== ENCOUNTER → 2023-03-24 | Outpatient (CLI) | payer MEDICAID ==
[~2023-03-24] MED LIST changes: +LIDOCAINE HCL 4% LTA SOL 4 ML VIAL TP ONE
== END | disposition home or self-care (01) ==
LOC: WHH 10:33
PROVIDERS: ATTEND Nurse Practitioner Family
DX: E11.621 Type 2 diabetes mellitus with foot ulcer (principal); L97.412 Non-pressure chronic ulcer of right heel and midfoot with fat layer exposed; L97.311 Non-pressure chronic ulcer of right ankle limited to breakdown of skin; S81.801D Unspecified open wound, right lower leg, subsequent encounter; L03.115 Cellulitis of right lower limb; E11.65 Type 2 diabetes mellitus with hyperglycemia; I89.0 Lymphedema, not elsewhere classified; I10 Essential (primary) hypertension; E78.2 Mixed hyperlipidemia; E03.9 Hypothyroidism, unspecified; E66.9 Obesity, unspecified; Z68.43 Body mass index [BMI] 50.0-59.9, adult; Z79.899 Other long term (current) drug therapy; Z86.718 Personal history of other venous thrombosis and embolism; W22.8XXD Striking against or struck by other objects, subsequent encounter
CPT/HCPCS: 29580; A6456

== ENCOUNTER → 2023-05-20 | Outpatient (CLI) | payer MEDICAID ==
[~2023-05-20] MED LIST changes: -LIDOCAINE HCL 4% LTA SOL 4 ML VIAL TP ONE
== END | disposition home or self-care (01) ==
LOC: WHH 09:14
PROVIDERS: ATTEND Nurse Practitioner Family
DX: I87.311 Chronic venous hypertension (idiopathic) with ulcer of right lower extremity (principal); E11.622 Type 2 diabetes mellitus with other skin ulcer; L97.812 Non-pressure chronic ulcer of other part of right lower leg with fat layer exposed; E11.621 Type 2 diabetes mellitus with foot ulcer; L97.412 Non-pressure chronic ulcer of right heel and midfoot with fat layer exposed; I89.0 Lymphedema, not elsewhere classified; E11.65 Type 2 diabetes mellitus with hyperglycemia; L85.3 Xerosis cutis; E78.2 Mixed hyperlipidemia; E66.01 Morbid (severe) obesity due to excess calories; Z68.43 Body mass index [BMI] 50.0-59.9, adult; Z95.810 Presence of automatic (implantable) cardiac defibrillator; Z86.718 Personal history of other venous thrombosis and embolism; Z79.4 Long term (current) use of insulin; Z79.82 Long term (current) use of aspirin; Z79.899 Other long term (current) drug therapy
CPT/HCPCS: 11042; 11045; A6250; A6197; A4450; A6456

== ENCOUNTER → 2023-05-30 | Outpatient (CLI) | payer MEDICAID | END | disposition home or self-care (01) | LOC: WHH 08:14 | PROVIDERS: ATTEND Nurse Practitioner Family | DX: E11.622 Type 2 diabetes mellitus with other skin ulcer (principal); I87.311 Chronic venous hypertension (idiopathic) with ulcer of right lower extremity; L97.812 Non-pressure chronic ulcer of other part of right lower leg with fat layer exposed; E11.621 Type 2 diabetes mellitus with foot ulcer; L97.412 Non-pressure chronic ulcer of right heel and midfoot with fat layer exposed; I89.0 Lymphedema, not elsewhere classified; E11.65 Type 2 diabetes mellitus with hyperglycemia; L85.3 Xerosis cutis; E03.9 Hypothyroidism, unspecified; E78.2 Mixed hyperlipidemia; E66.01 Morbid (severe) obesity due to excess calories; Z68.43 Body mass index [BMI] 50.0-59.9, adult; Z95.810 Presence of automatic (implantable) cardiac defibrillator; Z86.718 Personal history of other venous thrombosis and embolism; Z79.4 Long term (current) use of insulin; Z79.82 Long term (current) use of aspirin; Z79.899 Other long term (current) drug therapy | CPT/HCPCS: 29580; A6196; A6197; A6456 ==

== ENCOUNTER → 2023-06-03 | Outpatient (CLI) | payer MEDICAID ==
[~2023-06-03] MED LIST changes: +LIDOCAINE HCL 4% LTA SOL 4 ML VIAL TP ONE
== END | disposition home or self-care (01) ==
LOC: WHH 08:04
PROVIDERS: ATTEND Nurse Practitioner Family
DX: I87.311 Chronic venous hypertension (idiopathic) with ulcer of right lower extremity (principal); E11.622 Type 2 diabetes mellitus with other skin ulcer; L97.812 Non-pressure chronic ulcer of other part of right lower leg with fat layer exposed; E11.621 Type 2 diabetes mellitus with foot ulcer; L97.412 Non-pressure chronic ulcer of right heel and midfoot with fat layer exposed; I89.0 Lymphedema, not elsewhere classified; E11.65 Type 2 diabetes mellitus with hyperglycemia; L85.3 Xerosis cutis; E03.9 Hypothyroidism, unspecified; E78.2 Mixed hyperlipidemia; E66.01 Morbid (severe) obesity due to excess calories; Z68.43 Body mass index [BMI] 50.0-59.9, adult; Z95.810 Presence of automatic (implantable) cardiac defibrillator; Z86.718 Personal history of other venous thrombosis and embolism; Z79.4 Long term (current) use of insulin; Z79.82 Long term (current) use of aspirin; Z79.899 Other long term (current) drug therapy
CPT/HCPCS: 29580; A6197; A6456

== ENCOUNTER → 2023-06-06 | Outpatient (CLI) | payer MEDICAID ==
[~2023-06-06] MED LIST changes: -LIDOCAINE HCL 4% LTA SOL 4 ML VIAL TP ONE
== END | disposition home or self-care (01) ==
LOC: WHH 08:09
PROVIDERS: ATTEND Nurse Practitioner Family
DX: I87.311 Chronic venous hypertension (idiopathic) with ulcer of right lower extremity (principal); E11.622 Type 2 diabetes mellitus with other skin ulcer; L97.812 Non-pressure chronic ulcer of other part of right lower leg with fat layer exposed; E11.621 Type 2 diabetes mellitus with foot ulcer; L97.412 Non-pressure chronic ulcer of right heel and midfoot with fat layer exposed; I89.0 Lymphedema, not elsewhere classified; E11.65 Type 2 diabetes mellitus with hyperglycemia; L85.3 Xerosis cutis; E03.9 Hypothyroidism, unspecified; E78.2 Mixed hyperlipidemia; E66.01 Morbid (severe) obesity due to excess calories; Z68.43 Body mass index [BMI] 50.0-59.9, adult; Z95.810 Presence of automatic (implantable) cardiac defibrillator; Z86.718 Personal history of other venous thrombosis and embolism; Z79.4 Long term (current) use of insulin; Z79.82 Long term (current) use of aspirin; Z79.899 Other long term (current) drug therapy
CPT/HCPCS: 29580; A6197; A6456

== ENCOUNTER → 2023-06-10 | Outpatient (CLI) | payer MEDICAID | END | disposition home or self-care (01) | LOC: WHH 08:07 | PROVIDERS: ATTEND Nurse Practitioner Family | DX: I89.0 Lymphedema, not elsewhere classified (principal); I87.301 Chronic venous hypertension (idiopathic) without complications of right lower extremity; E11.65 Type 2 diabetes mellitus with hyperglycemia; L85.3 Xerosis cutis; I10 Essential (primary) hypertension; E78.2 Mixed hyperlipidemia; E66.01 Morbid (severe) obesity due to excess calories; Z68.43 Body mass index [BMI] 50.0-59.9, adult; Z95.810 Presence of automatic (implantable) cardiac defibrillator; Z86.718 Personal history of other venous thrombosis and embolism; Z79.4 Long term (current) use of insulin; Z79.82 Long term (current) use of aspirin; Z79.899 Other long term (current) drug therapy | CPT/HCPCS: 29580; A4450; A6456 ==

== ENCOUNTER → 2023-06-13 | Outpatient (CLI) | payer MEDICAID | END | disposition home or self-care (01) | LOC: WHH 08:32 | PROVIDERS: ATTEND Nurse Practitioner Family | DX: I89.0 Lymphedema, not elsewhere classified (principal); I87.311 Chronic venous hypertension (idiopathic) with ulcer of right lower extremity; E11.621 Type 2 diabetes mellitus with foot ulcer; L97.412 Non-pressure chronic ulcer of right heel and midfoot with fat layer exposed; L84 Corns and callosities; L85.3 Xerosis cutis; E11.65 Type 2 diabetes mellitus with hyperglycemia; E78.2 Mixed hyperlipidemia; E03.9 Hypothyroidism, unspecified; E66.09 Other obesity due to excess calories; Z68.43 Body mass index [BMI] 50.0-59.9, adult; Z86.718 Personal history of other venous thrombosis and embolism; Z95.810 Presence of automatic (implantable) cardiac defibrillator; Z79.4 Long term (current) use of insulin; Z79.82 Long term (current) use of aspirin; Z79.899 Other long term (current) drug therapy | CPT/HCPCS: 29580; A6456 ==

== ENCOUNTER → 2023-06-17 | Outpatient (CLI) | payer MEDICAID | END | disposition home or self-care (01) | LOC: WHH 08:16 | PROVIDERS: ATTEND Nurse Practitioner Family | DX: I89.0 Lymphedema, not elsewhere classified (principal); S81.801A Unspecified open wound, right lower leg, initial encounter; E11.621 Type 2 diabetes mellitus with foot ulcer; L97.412 Non-pressure chronic ulcer of right heel and midfoot with fat layer exposed; I87.311 Chronic venous hypertension (idiopathic) with ulcer of right lower extremity; E11.65 Type 2 diabetes mellitus with hyperglycemia; L85.3 Xerosis cutis; E78.2 Mixed hyperlipidemia; E66.01 Morbid (severe) obesity due to excess calories; Z68.43 Body mass index [BMI] 50.0-59.9, adult; Z95.810 Presence of automatic (implantable) cardiac defibrillator; Z86.718 Personal history of other venous thrombosis and embolism; Z79.4 Long term (current) use of insulin; Z79.82 Long term (current) use of aspirin; Z79.899 Other long term (current) drug therapy; X58.XXXA Exposure to other specified factors, initial encounter; Y93.89 Activity, other specified; Y92.89 Other specified places as the place of occurrence of the external cause; Y99.8 Other external cause status | CPT/HCPCS: 29580; A4649; A6456 ==

== ENCOUNTER → 2023-06-20 | Outpatient (CLI) | payer MEDICAID | END | disposition home or self-care (01) | LOC: WHH 08:15 | PROVIDERS: ATTEND Nurse Practitioner Family | DX: I89.0 Lymphedema, not elsewhere classified (principal); S81.801D Unspecified open wound, right lower leg, subsequent encounter; E11.621 Type 2 diabetes mellitus with foot ulcer; L97.412 Non-pressure chronic ulcer of right heel and midfoot with fat layer exposed; I87.311 Chronic venous hypertension (idiopathic) with ulcer of right lower extremity; E11.65 Type 2 diabetes mellitus with hyperglycemia; L85.3 Xerosis cutis; E78.2 Mixed hyperlipidemia; E66.01 Morbid (severe) obesity due to excess calories; Z68.43 Body mass index [BMI] 50.0-59.9, adult; Z95.810 Presence of automatic (implantable) cardiac defibrillator; Z86.718 Personal history of other venous thrombosis and embolism; Z79.4 Long term (current) use of insulin; Z79.82 Long term (current) use of aspirin; Z79.899 Other long term (current) drug therapy; X58.XXXD Exposure to other specified factors, subsequent encounter | CPT/HCPCS: 29580; A4649; A6456 ==

== ENCOUNTER → 2023-07-01 | Outpatient (CLI) | payer MEDICAID ==
[~2023-07-01] MED LIST changes: +LIDOCAINE HCL 4% LTA SOL 4 ML VIAL TP ONE
== END | disposition home or self-care (01) ==
LOC: WHH 08:11
PROVIDERS: ATTEND Nurse Practitioner Family
DX: I89.0 Lymphedema, not elsewhere classified (principal); E11.621 Type 2 diabetes mellitus with foot ulcer; L97.412 Non-pressure chronic ulcer of right heel and midfoot with fat layer exposed; I87.311 Chronic venous hypertension (idiopathic) with ulcer of right lower extremity; E11.65 Type 2 diabetes mellitus with hyperglycemia; L85.3 Xerosis cutis; E78.2 Mixed hyperlipidemia; E66.01 Morbid (severe) obesity due to excess calories; Z68.43 Body mass index [BMI] 50.0-59.9, adult; Z95.810 Presence of automatic (implantable) cardiac defibrillator; Z86.718 Personal history of other venous thrombosis and embolism; Z79.4 Long term (current) use of insulin; Z79.82 Long term (current) use of aspirin; Z79.899 Other long term (current) drug therapy
CPT/HCPCS: 29580; A4248; A4649; A6456

== ENCOUNTER → 2023-07-04 | Outpatient (CLI) | payer MEDICAID ==
[~2023-07-04] MED LIST changes: -LIDOCAINE HCL 4% LTA SOL 4 ML VIAL TP ONE
== END | disposition home or self-care (01) ==
LOC: WHH 08:27
PROVIDERS: ATTEND Nurse Practitioner Family
DX: I89.0 Lymphedema, not elsewhere classified (principal); E11.621 Type 2 diabetes mellitus with foot ulcer; L97.412 Non-pressure chronic ulcer of right heel and midfoot with fat layer exposed; I87.311 Chronic venous hypertension (idiopathic) with ulcer of right lower extremity; E11.65 Type 2 diabetes mellitus with hyperglycemia; L85.3 Xerosis cutis; E78.2 Mixed hyperlipidemia; E66.01 Morbid (severe) obesity due to excess calories; Z68.43 Body mass index [BMI] 50.0-59.9, adult; Z95.810 Presence of automatic (implantable) cardiac defibrillator; Z86.718 Personal history of other venous thrombosis and embolism; Z79.4 Long term (current) use of insulin; Z79.82 Long term (current) use of aspirin; Z79.899 Other long term (current) drug therapy
CPT/HCPCS: 99211; A4649; G0463

== ENCOUNTER → 2023-07-11 | Outpatient (CLI) | payer MEDICAID | END | disposition home or self-care (01) | LOC: WHH 07:57 | PROVIDERS: ATTEND Nurse Practitioner Family | DX: I89.0 Lymphedema, not elsewhere classified (principal); E11.621 Type 2 diabetes mellitus with foot ulcer; L97.412 Non-pressure chronic ulcer of right heel and midfoot with fat layer exposed; I87.311 Chronic venous hypertension (idiopathic) with ulcer of right lower extremity; E11.65 Type 2 diabetes mellitus with hyperglycemia; L85.3 Xerosis cutis; E78.2 Mixed hyperlipidemia; E66.01 Morbid (severe) obesity due to excess calories; Z68.43 Body mass index [BMI] 50.0-59.9, adult; Z95.810 Presence of automatic (implantable) cardiac defibrillator; Z86.718 Personal history of other venous thrombosis and embolism; Z79.4 Long term (current) use of insulin; Z79.82 Long term (current) use of aspirin; Z79.899 Other long term (current) drug therapy | CPT/HCPCS: 99211; A4649 ==

== ENCOUNTER → 2023-07-15 | Outpatient (CLI) | payer MEDICAID ==
[~2023-07-15] MED LIST changes: +ACET-2079 PO; +AMLO-257 PO; +ASPI-1005 PO; +CEPH500B PO; +EMPA10TA PO; +GEMF600T89 PO; +LEVO75CA5 PO; +ROSU20TA73 PO
== END | disposition home or self-care (01) ==
LOC: WHH 08:06
PROVIDERS: ATTEND Nurse Practitioner Family
DX: I89.0 Lymphedema, not elsewhere classified (principal); E11.621 Type 2 diabetes mellitus with foot ulcer; L97.412 Non-pressure chronic ulcer of right heel and midfoot with fat layer exposed; I87.311 Chronic venous hypertension (idiopathic) with ulcer of right lower extremity; E11.65 Type 2 diabetes mellitus with hyperglycemia; L85.3 Xerosis cutis; E78.2 Mixed hyperlipidemia; E66.01 Morbid (severe) obesity due to excess calories; Z68.43 Body mass index [BMI] 50.0-59.9, adult; Z95.810 Presence of automatic (implantable) cardiac defibrillator; Z86.718 Personal history of other venous thrombosis and embolism; Z79.4 Long term (current) use of insulin; Z79.82 Long term (current) use of aspirin; Z79.899 Other long term (current) drug therapy
CPT/HCPCS: 99214; A4649; A4450

== ENCOUNTER → 2023-07-21 | Outpatient (CLI) | payer MEDICAID ==
[~2023-07-21] MED LIST changes: +LIDOCAINE HCL 4% LTA SOL 4 ML VIAL TP ONE
== END | disposition home or self-care (01) ==
LOC: WHH 08:10
PROVIDERS: ATTEND Nurse Practitioner Family
DX: I89.0 Lymphedema, not elsewhere classified (principal); E11.621 Type 2 diabetes mellitus with foot ulcer; L97.412 Non-pressure chronic ulcer of right heel and midfoot with fat layer exposed; I87.311 Chronic venous hypertension (idiopathic) with ulcer of right lower extremity; E11.65 Type 2 diabetes mellitus with hyperglycemia; E78.5 Hyperlipidemia, unspecified; E03.9 Hypothyroidism, unspecified; L85.3 Xerosis cutis; E78.2 Mixed hyperlipidemia; E66.01 Morbid (severe) obesity due to excess calories; Z68.43 Body mass index [BMI] 50.0-59.9, adult; Z95.810 Presence of automatic (implantable) cardiac defibrillator; Z86.718 Personal history of other venous thrombosis and embolism; Z79.4 Long term (current) use of insulin; Z79.82 Long term (current) use of aspirin; Z79.899 Other long term (current) drug therapy
CPT/HCPCS: 99214; A4649

== ENCOUNTER 2023-07-23 09:53 | Emergency (ER) | payer MEDICAID ==
[~2023-07-23] VITALS: Ht 188 cm; Wt 156.5 kg
[~2023-07-23 09:53] MED LIST changes: -ACET-2079 PO; -AMLO-257 PO; -ASPI-1005 PO; -CEPH500B PO; -EMPA10TA PO; -GEMF600T89 PO; -LEVO75CA5 PO; -LIDOCAINE HCL 4% LTA SOL 4 ML VIAL TP ONE; -ROSU20TA73 PO
[2023-07-23 10:29] LABS: BASOPHILS # (AUTO) 0.05 K/uL (0.00-0.20); BASOPHILS % (AUTO) 0.4 % (0.0-5.0); HEMATOCRIT 42.7 % (42-54); IMMATURE GRANULOCYTE ABSOLUTE 0.09 K/uL (0-1); LYMPHOCYTES # (AUTO) 0.7 K/uL (1.0-4.8); LYMPHOCYTES % (AUTO) 5.9 % (21.0-51.0); MEAN CORPUSCULAR HEMOGLOBIN 30.9 pg (27.0-33.0); MEAN CORPUSCULAR HGB CONC 34.7 g/dL (32.0-36.0); MEAN CORPUSCULAR VOLUME 89.1 fL (79-99); MONOCYTES # (AUTO) 0.3 K/uL (0.1-1.0); MONOCYTES % (AUTO) 2.8 % (3.0-13.0); NEUTROPHILS # (AUTO) 10.8 K/uL (1.8-7.7); NEUTROPHILS % (AUTO) 90.1 % (40.0-77.0); PLATELET COUNT (AUTO) 155 K/uL (130-400); RED BLOOD CELL COUNT(AUTO) 4.79 MIL/uL (4.50-6.20)
[2023-07-23 10:49] LABS: CREATININE 2.2 mg/dL (0.5-1.5); POTASSIUM 3.7 mmol/L (3.5-5.1)
[2023-07-23 10:56] LABS: ALBUMIN 3.4 g/dL (3.5-5.0); BILIRUBIN,TOTAL 0.9 mg/dL (0.2-1.0); TOTAL PROTEIN, SERUM 8.2 g/dL (6.0-8.3)
[2023-07-23] MEDS ORDERED: 0.9%NACL 1000ML 1,000 ML IV ONE ×2 (11:30→18:00)
[2023-07-23] MEDS ORDERED: IOHEXOL-350 75 ML VIAL IV ONE (14:00)
[2023-07-23 16:45] LABS: APPEARANCE,URINE CLEAR (CLEAR); BILIRUBIN,URINE NEGATIVE (NEGATIVE); COLOR,URINE YELLOW (YELLOW); GLUCOSE, URINE (UA) >=1000 mg/dL (NEGATIVE); KETONES,URINE NEGATIVE (NEGATIVE); LEUKOCYTE ESTERASE ,URINE 75 Leu/uL (NEGATIVE); NITRATE,URINE NEGATIVE (NEGATIVE); OCCULT BLOOD,URINE SMALL (NEGATIVE); PH,URINE 5.5 (5.0-8.0); PROTEIN,URINE 70 mg/dL (NEGATIVE); UROBILINOGEN,URINE 0.2 mg/dL (0.2-1.0)
[2023-07-23 16:50] LABS: ADD UA MICROSCOPIC YES
[2023-07-23] MEDS ORDERED: KETOROLAC 15MG/ML VIAL (15MG/ML) IV ONE (17:00)
[2023-07-23] MEDS ORDERED: CEFTRIAXONE 1G VIAL IVPB ONE (17:00)
[2023-07-23 17:02] LABS: BACTERIA,URINE RARE /HPF (None Seen); MUCUS,URINE RARE LPF (None Seen); SQUAMOUS EPITHELIAL CELL,UR FEW /HPF (0-2); UNCLASSIFIED CRYSTAL 1 /HPF (None Seen)
[2023-07-23] MEDS ORDERED: CEPH500B PO (17:54)
[2023-07-23] MEDS ORDERED: ACET-2079 PO ×2 (17:56→18:00)
[2023-07-23] MEDS ORDERED: ONDANSETRON 4MG INJ IVP ONE (18:30)
[2023-07-23 18:36] VITALS: BP 117/65; PULSE 101; RESP 20; O2SAT 98
[2023-07-24] MEDS ORDERED: ROSU20TA73 PO (18:32)
[2023-07-24] MEDS ORDERED: LEVO75CA5 PO (18:32)
[2023-07-24] MEDS ORDERED: EMPA10TA PO (18:32)
[2023-07-24] MEDS ORDERED: AMLO-257 PO (18:32)
[2023-07-24] MEDS ORDERED: GEMF600T89 PO (18:32)
[2023-07-24] MEDS ORDERED: ASPI-1005 PO (18:32)
== END 2023-07-23 18:58 | disposition home or self-care (01) ==
LOC: EDH 09:53
DX: N12 Tubulo-interstitial nephritis, not specified as acute or chronic (principal); E11.9 Type 2 diabetes mellitus without complications; E78.00 Pure hypercholesterolemia, unspecified; I10 Essential (primary) hypertension; Z79.4 Long term (current) use of insulin; Z79.84 Long term (current) use of oral hypoglycemic drugs; Z79.899 Other long term (current) drug therapy; Z88.1 Allergy status to other antibiotic agents; Z88.2 Allergy status to sulfonamides; Z95.810 Presence of automatic (implantable) cardiac defibrillator
CPT/HCPCS: 99285; 74177; 96374; 71045; 96361; 96375; 84484; 80053; 83690; 85025; 87077; 87088; 87186; 81001; 36415; 93005; J7030 ×2; J0696; J2405; J1885; Q9967

== ENCOUNTER → 2023-08-04 | Outpatient (CLI) | payer MEDICAID ==
[~2023-08-04] MED LIST changes: +AMLO-257 PO; +ASPI-1005 PO; -ATOR40TA71 PO; -CLIN-141 PO; -IBUP-2077 PO; -INSU3INS3 SQ; -LEVO50TA11 PO; +LEVO75CA5 PO; -LISI1TAB51 PO; -METF-446 PO; -METO100T14 PO; +ROSU20TA73 PO; -SITA1TAB6 PO
== END | disposition home or self-care (01) ==
LOC: WHH 08:56
PROVIDERS: ATTEND Nurse Practitioner Family
DX: S91.101A Unspecified open wound of right great toe without damage to nail, initial encounter (principal); E11.621 Type 2 diabetes mellitus with foot ulcer; L97.412 Non-pressure chronic ulcer of right heel and midfoot with fat layer exposed; I87.311 Chronic venous hypertension (idiopathic) with ulcer of right lower extremity; E11.65 Type 2 diabetes mellitus with hyperglycemia; E78.5 Hyperlipidemia, unspecified; E03.9 Hypothyroidism, unspecified; L85.3 Xerosis cutis; E78.2 Mixed hyperlipidemia; E66.01 Morbid (severe) obesity due to excess calories; Z68.43 Body mass index [BMI] 50.0-59.9, adult; Z95.810 Presence of automatic (implantable) cardiac defibrillator; Z86.718 Personal history of other venous thrombosis and embolism; Z79.4 Long term (current) use of insulin; Z79.82 Long term (current) use of aspirin; Z79.899 Other long term (current) drug therapy; X58.XXXA Exposure to other specified factors, initial encounter; Y93.89 Activity, other specified; Y92.89 Other specified places as the place of occurrence of the external cause; Y99.8 Other external cause status
CPT/HCPCS: 82948; 99214

== ENCOUNTER → 2023-08-19 | Outpatient (CLI) | payer MEDICAID | END | disposition home or self-care (01) | LOC: WHH 10:02 | PROVIDERS: ATTEND Nurse Practitioner Family | DX: E11.621 Type 2 diabetes mellitus with foot ulcer (principal); L97.412 Non-pressure chronic ulcer of right heel and midfoot with fat layer exposed; S91.101D Unspecified open wound of right great toe without damage to nail, subsequent encounter; I87.311 Chronic venous hypertension (idiopathic) with ulcer of right lower extremity; E11.622 Type 2 diabetes mellitus with other skin ulcer; L97.312 Non-pressure chronic ulcer of right ankle with fat layer exposed; E11.65 Type 2 diabetes mellitus with hyperglycemia; E78.5 Hyperlipidemia, unspecified; E03.9 Hypothyroidism, unspecified; L85.3 Xerosis cutis; E78.2 Mixed hyperlipidemia; E66.01 Morbid (severe) obesity due to excess calories; Z68.43 Body mass index [BMI] 50.0-59.9, adult; Z95.810 Presence of automatic (implantable) cardiac defibrillator; Z86.718 Personal history of other venous thrombosis and embolism; Z79.4 Long term (current) use of insulin; Z79.82 Long term (current) use of aspirin; Z79.899 Other long term (current) drug therapy; X58.XXXD Exposure to other specified factors, subsequent encounter | CPT/HCPCS: 99214; A4248 ==